=== PATIENT | male | born 1990 | race Caucasian/White ===

== ENCOUNTER 2017-03-11 15:46 | Emergency (ER) | payer OTHER ==
[~2017-03-11] VITALS: Ht 172.7 cm; Wt 68.0 kg
--- NOTE | 2017-03-11 15:46 | NUR ---
BBRA FROM [employer] FROM SYNCOPAL EPISODE. NO TRAUMA NOTED, NEURO INTACT.NAD NOTED. PT AAO X4, AMB WITH STEADY GAIT. RR EVEN AND UNLABORED. DR HERBERT AT BEDSIDE FOR EVAL.
[2017-03-11] MEDS ORDERED: IV NS 0.9% 1,000 ML IV ONE (16:00)
[2017-03-11] MEDS ORDERED: IV NS 0.9% 1,000 ML ONE (16:16)
[2017-03-11] MEDS ORDERED: IV SET PRIMARY 1 EA INFUS.SET MC ONE (16:16)
[2017-03-11 16:26] LABS: BASOPHILS # (AUTO) 0.1 /CMM (0.0-0.2); BASOPHILS % (AUTO) 1.3 % (0.0-2.0); EOSINOPHILS # (AUTO) 0.1 /CMM (0.0-0.7); EOSINOPHILS % (AUTO) 0.8 % (0.0-6.0); HEMATOCRIT 44 % (39-51); HEMOGLOBIN 14.6 g/dL (13.5-17.5); LYMPHOCYTES # (AUTO) 2.5 /CMM (0.8-4.8); LYMPHOCYTES % (AUTO) 33.3 % (20.0-44.0); MEAN CORPUSCULAR HEMOGLOBIN 29 PG (26.0-33.0); MEAN CORPUSCULAR HGB CONC 34 g/dl (31.0-36.0); MEAN CORPUSCULAR VOLUME 86 fL (80-96); MONOCYTES # (AUTO) 0.4 /CMM (0.1-1.30); MONOCYTES % (AUTO) 5.4 % (2.0-12.0); NEUTROPHILS # (AUTO) 4.5 /CMM (1.8-8.9); NEUTROPHILS % (AUTO) 59.2 % (43.0-81.0); PLATELET COUNT (AUTO) 245 /CMM (150-450); RDW COEFFICIENT OF VARIATION 11.7 (11.5-15.0); RED BLOOD CELL COUNT(AUTO) 5.06 MIL/uL (4.5-6.0); WHITE BLOOD COUNT (AUTO) 7.6 K/uL (4.3-11.0)
[2017-03-11 16:33] LABS: CALCIUM, SERUM 8.9 mg/dL (8.5-10.1); CREATININE 1.2 mg/dL (0.6-1.3); POTASSIUM 3.5 mmol/L (3.5-5.1)
--- NOTE | 2017-03-11 17:20 | NUR ---
IV removed. Catheter intact and site benign. Pressure and 4x4 applied to site. No bleeding noted.
--- NOTE | 2017-03-11 17:20 | NUR ---
Patient discharged to home in stable condition. Written and verbal after care instructions given. Patient verbalizes understanding of instruction.
[2017-03-11 17:21] VITALS: BP 137/65
== END 2017-03-11 17:07 | disposition home or self-care (01) ==
LOC: ER 15:49
DX: R55 Syncope and collapse (principal); F17.200 Nicotine dependence, unspecified, uncomplicated
CPT/HCPCS: 36415; 80048; 85025; 93005; 96360; 99285; A4606; J7030; Z7610

== ENCOUNTER 2020-12-23 10:20 | Emergency (ER) | payer OTHER ==
[~2020-12-23] VITALS: Ht 172.7 cm; Wt 68.0 kg
--- NOTE | 2020-12-23 10:34 | NUR ---
CAME IN FOR "BLACK STOOL" THIS MORNING, TO ER BED 11, HOOKED TO MONITOR, NOTED TACHYCARDIC. CHNAGED TO HOSP GOWN, WARM BLANKET PROVIDED, PATIENT AAO X 4. NAD NOTED, AWAITING MD VALENCIA
--- NOTE | 2020-12-23 10:35 | NUR ---
DR CERVANTES AT BEDSIDE
[2020-12-23] MEDS ORDERED: PANTOPRAZOLE 40 MG VIAL IV ONE (11:00)
[2020-12-23] MEDS ORDERED: IV NS 0.9% 1,000 ML BAG IV ONE (11:00)
[2020-12-23] MEDS ORDERED: ONDANSETRON HCL/PF 4 MG/2 ML VIAL IVP ONE (11:00)
[2020-12-23] MEDS ORDERED: PANTOPRAZOLE 40 MG VIAL ONE (11:04)
[2020-12-23] MEDS ORDERED: ONDANSETRON HCL/PF 4 MG/2 ML VIAL ONE (11:04)
[2020-12-23 11:17] LABS: BASOPHILS % (AUTO) 0.3 % (0.0-2.0); EOSINOPHILS % (AUTO) 0.5 % (0.0-6.0); HEMATOCRIT 50 % (39-51); HEMOGLOBIN 17.2 g/dL (13.5-17.5); LYMPHOCYTES % (AUTO) 30.3 % (20.0-44.0); MEAN CORPUSCULAR HGB CONC 34 g/dl (31.0-36.0); MEAN CORPUSCULAR VOLUME 90 fL (80-96); MONOCYTES # (AUTO) 0.7 /CMM (0.1-1.30); MONOCYTES % (AUTO) 10.3 % (2.0-12.0); NEUTROPHILS # (AUTO) 3.9 /CMM (1.8-8.9); NEUTROPHILS % (AUTO) 58.6 % (43.0-81.0); PLATELET COUNT (AUTO) 298 /CMM (150-450); RED BLOOD CELL COUNT(AUTO) 5.54 MIL/uL (4.5-6.0); WHITE BLOOD COUNT (AUTO) 6.7 K/uL (4.3-11.0)
[2020-12-23 11:26] LABS: CALCIUM, SERUM 9.3 mg/dL (8.5-10.1); CREATININE 1.2 mg/dL (0.6-1.3); POTASSIUM 3.5 mmol/L (3.5-5.1)
[2020-12-23 11:32] LABS: ALBUMIN 4.4 g/dL (3.4-5.0); BILIRUBIN,DIRECT 0.2 mg/dL (0.0-0.2); TOTAL PROTEIN, SERUM 8.1 g/dL (6.4-8.2)
[2020-12-23] MEDS ORDERED: FAMO-131 PO (12:47)
[2020-12-23 12:55] VITALS: BP 136/88
--- NOTE | 2020-12-23 12:55 | NUR ---
IV removed. Catheter intact and site benign. Pressure and 4x4 applied to site. No bleeding noted.Patient discharged to home in stable condition. Written and verbal after care instructions given. Patient verbalizes understanding of instruction.
== END 2020-12-23 12:56 | disposition home or self-care (01) ==
LOC: ER 10:22
DX: K29.70 Gastritis, unspecified, without bleeding (principal); F10.10 Alcohol abuse, uncomplicated; F17.200 Nicotine dependence, unspecified, uncomplicated; Y90.9 Presence of alcohol in blood, level not specified; Z79.899 Other long term (current) drug therapy
CPT/HCPCS: 36415; 80048; 80076; 83690; 85025; 85730; 96361; 96374; 96375; 99284; C9113; J2405; J7030